=== PATIENT | female | born 1970 | race American Indian/Alaskan Native ===

== ENCOUNTER 2018-02-20 18:50 | Emergency (ER) | payer BC ==
[~2018-02-20] VITALS: Ht 157.5 cm; Wt 102.5 kg
[2018-02-20 21:19] LABS: PLATELET COUNT 313 K/uL (152-353)
[2018-02-20 21:44] LABS: PARTIAL THROMBOPLASTIN TIME 27.4 SECONDS (24.5-33.6)
== END 2018-02-20 22:06 | disposition home or self-care (01) ==
LOC: ED 18:50
PROVIDERS: Specialist
DX: H92.23 Otorrhagia, bilateral (principal)
CPT/HCPCS: 36415; 85002; 85027; 85610; 85730; 99283